=== PATIENT | male | born 2000 | race Caucasian/White ===

== ENCOUNTER 2022-02-23 15:36 | Emergency (ER) | payer SELFPAY ==
[~2022-02-23] VITALS: Ht 180.3 cm; Wt 86.0 kg
[2022-02-23] MEDS ORDERED: LIDOCAINE HCL 1% 20ML VIAL (Pyxis) INJ INFIL ONE (17:45)
[2022-02-23] MEDS ORDERED: CEFTRIAXONE SODIUM 500 MG/VIAL IM ONE (17:45)
[2022-02-23] MEDS ORDERED: DOXY100C5 MT (18:10)
[2022-02-23 18:24] VITALS: BP 134/76
[2022-02-27 07:08] LABS: NEISSERIA GONORRHOEAE NAA Negative (Negative)
== END 2022-02-23 18:26 | disposition home or self-care (01) ==
LOC: ER 15:36
DX: N34.2 Other urethritis (principal); B09 Unspecified viral infection characterized by skin and mucous membrane lesions; Z20.2 Contact with and (suspected) exposure to infections with a predominantly sexual mode of transmission
CPT/HCPCS: 87491; 87591; 96372; 99283; J0696; J3490